=== PATIENT | female | born 1945 | race African-American/Black ===

== ENCOUNTER 2017-04-04 14:44 | Emergency (ER) | payer MEDICARE, BC ==
--- NOTE | ~2017-04-04 | US85 ---
[facility] A Service of [facility] & [facility] RADIOLOGY TEXT RESULTS PATIENT: STEVE CARMONA LOCATION: [facility] : 41 UNIT #: [id number] AGE: [address]: Joseph Sanders MD SEX: F ORDER DR: [id number] [facility] [address] [place], [place] [address] [id number] MR#: [id number] Acc #: [id number] NAME: STEVE CARMONA : 1945 SEX: F STUDY DATE/TIME: 04/04/2017 15:54 UNIT: [facility] ROOM: STUDY DESCRIPTION: [facility] [employer] Attending Physician: Joseph Sanders M.D. Ordering Physician: Joseph Sanders M.D. Primary Care Physician: Jonah Costa M.D. MEDICAL IMAGING REPORT This report is preliminary unless electronic signature is present EXAM Unilateral left lower extremity venous Doppler 04/04/2017 HISTORY Calf pain and swelling for 3 days. TECHNIQUE Venous ultrasound examination of the left lower extremity was performed using grayscale, spectral Doppler and color flow Doppler imaging. FINDINGS The examination is negative. There is no evidence of left lower extremity deep venous thrombus from the groin to the lower calf. Visualized greater saphenous vein is also patent. IMPRESSION Negative examination. No evidence of left lower extremity deep venous thrombosis. Dictated by... Kamaljit Thayer M.D. THIS IS AN ELECTRONICALLY VERIFIED REPORT Kamaljit Thayer M.D. at 04/06/2017 1:23 PM TEV/pcl TD: 04/04/2017 21:44 JOB #: [id number] MEDICAL IMAGING REPORT Page 1 of 1 COPY
== END 2017-04-04 17:23 | disposition home or self-care (01) ==
LOC: CED 14:44
DX: M79.662 Pain in left lower leg (principal); M79.89 Other specified soft tissue disorders; F17.200 Nicotine dependence, unspecified, uncomplicated
CPT/HCPCS: 93971; 99284